=== PATIENT | female | born 1965 ===

== ENCOUNTER 2018-12-14 09:26 | Emergency (ER) | payer OTHER ==
[2018-12-14 09:32] VITALS: RESP 18
--- NOTE | 2018-12-14 11:14 | ED PDOC ---
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 denies: Chills, Nausea, Vomiting, Diarrhea, Loss Of Appetite Exacerbating Factors: None Alleviating Factors: None Last Bowel Movement: Today Additional Complaint(s): 52yo female c/o LUQ abd pain ongoing about 10 days but worsening over last 3-4 days. Denies N/V/D, change appetite, fever or urinary symptoms. Denies syncope or trauma. Notes a rib fracture on R side several years ago which is similar type of pain on other side. Past Medical History Reviewed: Historical Data, Nursing Documentation, Vital Signs Vital Signs: Last Vital Signs Temp 98.5 F 12/14/18 09:31 Pulse 68 12/14/18 09:31 Resp 18 12/14/18 09:31 BP 127/74 12/14/18 09:31 Pulse Ox 97 12/14/18 09:31 - Medical History PMH: Depression Denies: Chronic Kidney Disease - Surgical History Surgical History: - Family History Family History: States: Unknown Family Hx - Social History Current smoker - smoking cessation education provided: No - Home Medications Home Medications: Ambulatory Orders Medication Instructions Recorded RX: traMADol [Ultram] 50 mg PO TID PRN #12 tab 12/14/18 Ranitidine HCl [Zantac] 150 mg PO BID #20 tablet 12/14/18 - Allergies Allergies/Adverse Reactions: Allergies Allergy/AdvReac Type Severity Reaction Status Date / Time Penicillins Allergy Unknown NAUSEA Verified 12/14/18 13:03 Review of Systems ROS Statement: Except As Marked, All Systems Reviewed And Found Negative Constitutional: Negative for: Fever Cardiovascular: Negative for: Chest Pain Respiratory: Negative for: Shortness of Breath Gastrointestinal: Positive for: Abdominal Pain. Negative for: Nausea, Vomiting, Diarrhea Genitourinary Female: Negative for: Dysuria, Frequency Musculoskeletal: Positive for: Back Pain. Negative for: Neck Pain, Shoulder Pain Skin: Negative for: Rash, Lesions, Jaundice Neurological: Negative for: Weakness, Numbness Psych: Negative for: Anxiety Physical Exam - Reviewed Nursing Documentation Reviewed: Yes Vital Signs Reviewed: Yes - Physical Exam Appears: Positive for: Well, Non-toxic, No Acute Distress Head Exam: Positive for: ATRAUMATIC, NORMAL INSPECTION, NORMOCEPHALIC Skin: Positive for: Normal Color, Warm, DRY Eye Exam: Positive for: EOMI, Normal appearance, PERRL ENT: Positive for: Normal ENT Inspection Neck: Positive for: Normal, Painless ROM Cardiovascular/Chest: Positive for: Regular Rate, Rhythm Respiratory: Positive for: CNT, Normal Breath Sounds Gastrointestinal/Abdominal: Positive for: Soft, Tenderness (LUQ). Negative for: Guarding Back: Positive for: Normal Inspection Extremity: Positive for: Normal ROM Neurologic/Psych: Positive for: Alert, Oriented. Negative for: Motor/Sensory D eficits - Laboratory Results Result Diagrams: 12/14/18 12:00 12/14/18 12:00 - ECG O2 Sat by Pulse Oximetry: 97 Pulse Ox Interpretation: Normal Medical Decision Making Medical Decision Makin Abdomen/Pelvis FINDINGS: LOWER THORAX: Unremarkable. LIVER: 3.7 x 2.8 cm medial left hepatic lobe cyst. No gross lesion or ductal dilatation. GALLBLADDER AND BILE DUCTS: Unremarkable. PANCREAS: Unremarkable. No gross lesion or ductal dilatation. SPLEEN: Unremarkable. ADRENALS: Unremarkable. No mass. KIDNEYS AND URETERS: Unremarkable. Punctate nonobstructive left interpolar calculus. No hydronephrosis. No solid mass. VASCULATURE: Unremarkable. No aortic aneurysm. No aortic atherosclerotic calcification or mural plaque present. BOWEL: Unremarkable. No obstruction. No gross mural thickening. APPENDIX: Unremarkable. Normal appendix. PERITONEUM: Unremarkable. No free fluid. No free air. LYMPH NODES: Unremarkable. No enlarged lymph nodes. BLADDER: Unremarkable. REPRODUCTIVE: Unremarkable. BONES: No acute fracture. OTHER FINDINGS: None. IMPRESSION: Punctate nonobstructive left interpolar calculus. No obstructive uropathy or evidence of recently passed genitourinary calculus. 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 Disposition - Clinical Impression Clinical Impression: Abdominal pain - Patient ED Disposition Is Patient to be Admitted: No Counseled Patient/Family Regarding: Studies Performed, Diagnosis, Need For Followup - Disposition Referrals: [facility] [Outside] Disposition: Routine/Home Disposition Time: 12:15 Condition: STABLE Additional Instructions: Followup with clinic for further testing into precise cause of symptoms. Prescriptions: Ranitidine HCl [Zantac] 150 mg PO BID #20 tablet RX: traMADol [Ultram] 50 mg PO TID PRN #12 tab PRN Reason: Pain, Moderate (4-7) Instructions: Acute Abdomen (Belly Pain), Adult (DC) Forms: [employer] (Kyrgyz) Print Language: GIBRALTARIAN
[2018-12-14 12:50] LABS: SQUAMOUS EPITHIAL < 1 /hpf (0-5); URINE BILIRUBIN NEGATIVE (NEGATIVE); URINE CLARITY CLEAR (Clear); URINE COLOR YELLOW (YELLOW); URINE GLUCOSE (UA) NEG (NEGATIVE); URINE LEUKOCYTE ESTERASE NEG Leu/uL (Negative); URINE PROTEIN NEGATIVE (NEGATIVE); URINE UROBILINOGEN 0.2-1.0 mg/dL (0.2-1.0)
[2018-12-14 12:55] LABS: ALB/GLOB RATIO 1.2 (1.0-2.1); ALBUMIN 4.1 g/dL (3.5-5.0); ALT/SGPT 33 U/L (9-52); AST/SGOT 33 U/L (14-36); BASO % 0.6 % (0.0-2.0); BLOOD UREA NITROGEN 14 mg/dl (7-17); CALCIUM 9.1 mg/dL (8.4-10.2); EOS # 0.1 K/uL (0.0-0.7); EOS % 3.1 % (0.0-4.0); GFR NON-AFRICAN AMERICAN > 60; HEMOGLOBIN 12.7 g/dL (12.0-16.0); LIPASE 107 U/L (23-300); LYMPH # 1.1 K/uL (1.0-4.3); MEAN CELL VOLUME 89.2 fl (81.0-99.0); MEAN CORPUSCULAR HEMOGLOBIN 29.9 pg (27.0-31.0); MEAN CORPUSCULAR HGB CONC 33.5 g/dL (33.0-37.0); MEAN PLATELET VOLUME 8.4 fl (7.2-11.7); MONO # 0.3 K/uL (0.0-0.8); MONO % 7.2 % (0.0-10.0); NEUT # 2.9 K/uL (1.8-7.0); NEUT % 64.1 % (50.0-75.0); NRBC % 0.4 % (0.0-0.0); RBC 4.23 Mil/uL (3.80-5.20); RED CELL DISTRIBUTION WIDTH 13.2 % (11.5-14.5); WHITE BLOOD COUNT 4.5 K/uL (4.8-10.8)
--- NOTE | 2018-12-14 12:57 | CT ---
Date of service: 12/14/2018 PROCEDURE: CT Abdomen and Pelvis without intravenous contrast HISTORY: LUQ and L flank pain COMPARISON: None. TECHNIQUE: Contiguous images were obtained from the domes of the diaphragms to the upper thighs without the administration of intravenous contrast. Oral contrast was not administered. Radiation dose: Total exam DLP = 263.71 mGy-cm. This CT exam was performed using one or more of the following dose reduction techniques: Automated exposure control, adjustment of the mA and/or kV according to patient size, and/or use of iterative reconstruction technique. FINDINGS: LOWER THORAX: Unremarkable. LIVER: 3.7 x 2.8 cm medial left hepatic lobe cyst. No gross lesion or ductal dilatation. GALLBLADDER AND BILE DUCTS: Unremarkable. PANCREAS: Unremarkable. No gross lesion or ductal dilatation. SPLEEN: Unremarkable. ADRENALS: Unremarkable. No mass. KIDNEYS AND URETERS: Unremarkable. Punctate nonobstructive left interpolar calculus. No hydronephrosis. No solid mass. VASCULATURE: Unremarkable. No aortic aneurysm. No aortic atherosclerotic calcification or mural plaque present. BOWEL: Unremarkable. No obstruction. No gross mural thickening. APPENDIX: Unremarkable. Normal appendix. PERITONEUM: Unremarkable. No free fluid. No free air. LYMPH NODES: Unremarkable. No enlarged lymph nodes. BLADDER: Unremarkable. REPRODUCTIVE: Unremarkable. BONES: No acute fracture. OTHER FINDINGS: None. IMPRESSION: Punctate nonobstructive left interpolar calculus. No obstructive uropathy or evidence of recently passed genitourinary calculus.
[2018-12-14 13:01] LABS: URINE BLOOD TRACE (NEGATIVE)
[2018-12-14 15:57] VITALS: BP 102/56; PULSE 78; TEMP 98.4
--- NOTE | 2018-12-15 16:50 | CARD ---
APPROVED REPORT Date of service: 12/14/2018 EKG Measurement Heart [id number] <Conclusion> Sinus bradycardia Otherwise normal ECG
[2018-12-19 16:11] VITALS: O2SAT 97
== END 2018-12-14 15:58 | disposition home or self-care (01) ==
LOC: H.ER 09:26
DX: R10.9 Unspecified abdominal pain (principal); Z86.59 Personal history of other mental and behavioral disorders; Z88.0 Allergy status to penicillin
CPT/HCPCS: 74176; 80053; 81003; 81025; 83690; 84484; 85025; 93005; 96374; 99284; J1885

== ENCOUNTER 2019-01-08 18:50 | Emergency (ER) | payer OTHER ==
[2019-01-08 20:10] VITALS: BP 126/66; PULSE 59; RESP 16; TEMP 98.7; O2SAT 99
[2019-01-08] MEDS ORDERED: Sodium Chloride 0.9% 1,000 ML IV STA (21:09)
--- NOTE | 2019-01-08 21:12 | ED PDOC ---
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 Associated diarrhea (1-2x's daily). Pain worsened by food, has been taking Pepto bismol with little improvement. Patient also reports stools to be black. Denies fever, chest pain, shortness of breath, palpitations, urinary symptoms, recent travel, sick contacts. Past Medical History Reviewed: Historical Data, Nursing Documentation, Vital Signs Vital Signs: Last Vital Signs Temp 98.7 F 01/08/19 20:08 Pulse 59 L 01/08/19 20:08 Resp 16 01/08/19 20:08 BP 126/66 01/08/19 20:08 Pulse Ox 99 01/08/19 20:08 - Medical History PMH: Depression Denies: Chronic Kidney Disease - Surgical History Surgical History: Hernia Repair, - Family History Family History: States: Unknown Family Hx - Home Medications Home Medications: Ambulatory Orders Medication Instructions Recorded Ranitidine HCl [Zantac] 150 mg PO BID #20 tablet 12/14/18 traMADol [Ultram] 50 mg PO TID PRN #12 tab 12/14/18 Ciprofloxacin HCl [Cipro] 500 mg PO BID #19 tab 01/09/19 Dicyclomine [Bentyl] 20 mg PO TID PRN #21 tab 01/09/19 Famotidine [Pepcid] 20 mg PO BID #14 tab 01/09/19 metroNIDAZOLE [Flagyl] 500 mg PO TID #29 tab 01/09/19 - Allergies Allergies/Adverse Reactions: Allergies Allergy/AdvReac Type Severity Reaction Status Date / Time Penicillins Allergy Unknown NAUSEA Verified 01/08/19 20:08 Review of Systems ROS Statement: Except As Marked, All Systems Reviewed And Found Negative Gastrointestinal: Positive for: Abdominal Pain, Diarrhea Physical Exam - Reviewed Nursing Documentation Reviewed: Yes Vital Signs Reviewed: Yes - Physical Exam Appears: Positive for: Well, Non-toxic, No Acute Distress Head Exam: Positive for: ATRAUMATIC, NORMAL INSPECTION, NORMOCEPHALIC Skin: Positive for: Normal Color Eye Exam: Positive for: Normal appearance ENT: Positive for: Normal ENT Inspection Cardiovascular/Chest: Positive for: Regular Rate, Rhythm Respiratory: Positive for: Normal Breath Sounds Gastrointestinal/Abdominal: Positive for: Bowel Sounds, Soft, Tenderness (epigastric) Back: Positive for: Normal Inspection Extremity: Positive for: Normal ROM Neurologic/Psych: Positive for: Alert, Oriented (x3) - Laboratory Results Result Diagrams: 01/08/19 22:15 01/08/19 22:15 - ECG ECG: Positive for: Viewed By Me (reviewed by ED Attending) ECG Rhythm: Positive for: Sinus Bradycardia (59bpm) O2 Sat by Pulse Oximetry: 99 - Progress ED Course And Treament: -cbc -cmp -lipase -urinalysis -RUQ u/s -IV NS bolus -IV pepcid -PO bentyl EXAM: US Abdomen, Right Upper Quadrant. CLINICAL HISTORY: Ruq pain TECHNIQUE: Right upper quadrant sonography performed with image documentation. COMPARISON: None provided. FINDINGS: LIVER: 3.7 cm hepatic cyst. Within normal limits in size and echogenicity. No mass. GALLBLADDER: The gallbladder appears within normal limits. No gallbladder wall thickening or pericholecystic fluid. COMMON BILE DUCT: No dilation. 4 mm. PANCREAS: The distal pancreas is obscured by bowel gas. The visualized portion of the pancreas appears within normal limits. . RIGHT KIDNEY: Unremarkable. Normal renal contours. No renal mass or calculus. No hydronephrosis. IMPRESSION: 3.7 cm hepatic cyst. Unremarkable right upper quadrant ultrasound otherwise CT SCAN OF THE ABDOMEN AND PELVIS WITH CONTRAST. CLINICAL HISTORY: Abdominal pain. TECHNIQUE: Multiple axial and coronal CT images were obtained through the abdomen and pelvis after administration of intravenous and oral contrast material. COMPARISON: 12/14/2018. COMMENTS: Unchanged scattered simple hepatic cysts with the largest measuring 4.7 cm. Mild multifocal thickening of the sigmoid colon, not present on prior exam. The remaining liver is of uniform attenuation without mass or defect. There is no intra or extrahepatic biliary ductal dilatation. The spleen is normal. The gallbladder is within normal limits. The pancreas is of normal contour and attenuation characteristics. There is no evidence of adrenal mass. Both kidneys demonstrate prompt and equal nephrograms. The kidneys are normal in size, shape and configuration. There is no evidence of renal or ureteral mass. No renal or ureteral calculi are identified. There is no hydroureter or hydronephrosis. No evidence for appendicitis. No evidence for small or large bowel obstruction. There is no evidence of abdominal ascites or lymphadenopathy. There is no evidence of intrinsic or extrinsic bladder mass. There is no pelvic ascites or lymphadenopathy. Images of the lung bases show no evidence of pleural or parenchymal mass. There are no pleural effusions. The bony structures are free of lytic or blastic lesions. IMPRESSION: Uncomplicated sigmoid colitis, not present on prior exam Patient educated on findings, discharged with rx Cipro (dose given in ED), Flagyl (dose given in ED), bentyl, pepcid Advised follow up with PMD within 2-3 days Benedict diet Return precautions given Disposition - Clinical Impression Clinical Impression: Colitis, Abdominal pain - Patient ED Disposition Is Patient to be Admitted: No Counseled Patient/Family Regarding: Studies Performed, Diagnosis, Need For Followup, Rx Given - Disposition Referrals: [facility] [Outside] Disposition: Routine/Home Disposition Time: 03:02 Condition: IMPROVED Prescriptions: Ciprofloxacin HCl [Cipro] 500 mg PO BID #19 tab Dicyclomine [Bentyl] 20 mg PO TID PRN #21 tab PRN Reason: Pain, Mild (1-3) Famotidine [Pepcid] 20 mg PO BID #14 tab metroNIDAZOLE [Flagyl] 500 mg PO TID #29 tab Instructions: Colitis, Acute Abdomen (Belly Pain) Print Language: RUSSIAN
[2019-01-08 22:18] LABS: BASO % 0.4 % (0.0-2.0); EOS # 0.4 K/uL (0.0-0.7); EOS % 6.3 % (0.0-4.0); HEMOGLOBIN 11.3 g/dL (12.0-16.0); LYMPH # 1.4 K/uL (1.0-4.3); LYMPH % 24.4 % (20.0-40.0); MEAN CELL VOLUME 87.9 fl (81.0-99.0); MEAN CORPUSCULAR HGB CONC 34.1 g/dL (33.0-37.0); MEAN PLATELET VOLUME 8.1 fl (7.2-11.7); MONO # 0.3 K/uL (0.0-0.8); MONO % 6.1 % (0.0-10.0); NEUT # 3.6 K/uL (1.8-7.0); NEUT % 62.8 % (50.0-75.0); RBC 3.78 Mil/uL (3.80-5.20); RED CELL DISTRIBUTION WIDTH 13.4 % (11.5-14.5); WHITE BLOOD COUNT 5.7 K/uL (4.8-10.8)
[2019-01-08] MEDS ORDERED: Iohexol 240 (50 ml) PO ONE (22:32)
[2019-01-08 23:05] LABS: ALB/GLOB RATIO 1.3 (1.0-2.1); ALBUMIN 3.9 g/dL (3.5-5.0); ALT/SGPT 34 U/L (9-52); AST/SGOT 32 U/L (14-36); BLOOD UREA NITROGEN 10 mg/dl (7-17); CALCIUM 8.9 mg/dL (8.4-10.2); GFR NON-AFRICAN AMERICAN > 60; LIPASE 60 U/L (23-300)
[2019-01-08] MEDS ORDERED: Iohexol 240 (50 ml) ONE (23:22)
[2019-01-09 00:44] LABS: SQUAMOUS EPITHIAL < 1 /hpf (0-5); URINE BILIRUBIN NEGATIVE (NEGATIVE); URINE BLOOD MODERATE (NEGATIVE); URINE CLARITY SLIGHTY-CLOUDY (Clear); URINE COLOR YELLOW (YELLOW); URINE GLUCOSE (UA) NEG (NEGATIVE); URINE LEUKOCYTE ESTERASE NEG Leu/uL (Negative); URINE PROTEIN NEGATIVE (NEGATIVE); URINE UROBILINOGEN 0.2-1.0 mg/dL (0.2-1.0)
[2019-01-09] MEDS ORDERED: Iohexol 300 100 ML IJ ONE (01:37)
[2019-01-09] MEDS ORDERED: Potassium Chloride 20 mEq ER Tab PO ONE (03:01)
--- NOTE | 2019-01-09 10:17 | CARD ---
APPROVED REPORT Date of service: 01/08/2019 EKG Measurement Heart [id number] <Conclusion> Sinus bradycardia Otherwise normal ECG
--- NOTE | 2019-01-09 12:24 | US ---
Date of service: 01/08/2019 HISTORY: Abdominal pain COMPARISON: CT abdomen and pelvis performed earlier the same day TECHNIQUE: Grayscale imaging was performed. FINDINGS: LIVER: Measures 13.7 4.0 cm in length. Normal echogenicity of the liver parenchyma. There is a 2.8 x 2.5 x 3.7 cm simple cyst in the left hepatic lobe. No intrahepatic bile duct dilatation. GALLBLADDER: There are no gallstones, wall thickening or pericholecystic fluid. The sonographic Cline's sign is negative. COMMON BILE DUCT: Measures 4.0 mm. No stones. No dilatation. PANCREAS: Unremarkable as visualized. No mass. No ductal dilatation. RIGHT KIDNEY: Measures 10.6 cm in length. Normal echogenicity. No calculus, mass, or hydronephrosis. AORTA: No aneurysmal dilatation. IVC: Unremarkable. OTHER FINDINGS: None . IMPRESSION: No cholelithiasis or biliary dilatation. 3.7 cm simple cyst in the left hepatic lobe. A preliminary report was provided by [facility].
--- NOTE | 2019-01-09 12:31 | CT ---
Date of service: 01/09/2019 PROCEDURE: CT Abdomen and Pelvis with contrast HISTORY: abd pain, diarrhea COMPARISON: 12/14/2018 TECHNIQUE: Contrast dose: 80 mL Omnipaque 300 Radiation dose: Total exam DLP = 203.33 mGy-cm. This CT exam was performed using one or more of the following dose reduction techniques: Automated exposure control, adjustment of the mA and/or kV according to patient size, and/or use of iterative reconstruction technique. FINDINGS: LOWER THORAX: Unremarkable. LIVER: Normal size, contour and attenuation. Very mild periportal edema common nonspecific. Stable 3.9 cm low-density ovoid lesion in the left hepatic lobe, unchanged. Stable rounded 7 mm low-density lesion in the inferior right hepatic lobe. No new mass. GALLBLADDER AND BILE DUCTS: Unremarkable. PANCREAS: Unremarkable. No gross lesion or ductal dilatation. SPLEEN: Unremarkable. ADRENALS: Unremarkable. No mass. KIDNEYS AND URETERS: Unremarkable. No hydronephrosis. No solid mass. VASCULATURE: Unremarkable. No aortic aneurysm. Minimal atherosclerotic calcification of the abdominal aorta is noted. BOWEL: There is mild mural thickening of the sigmoid colon likely related to sigmoid diverticulosis and chronic muscularis hypertrophy. There is mild mural thickening of the superior rectum as well. Uncertain significance. Cannot rule out nonspecific focal colitis. Consider correlation with colonoscopy. This was not evident on prior CT examination and may be somewhat artifactual due to nondistention of the rectum. No bowel obstruction. No other abnormal bowel loops. APPENDIX: Normal appendix. PERITONEUM: Unremarkable. No free fluid. No free air. LYMPH NODES: Unremarkable. No enlarged lymph nodes. BLADDER: Unremarkable. REPRODUCTIVE: Uterus significant for hyperdense rounded mass, likely calcifying fibroid, 1.7 cm diameter. There is a subserosal exophytic posterior fundal fibroid, 1.4 cm diameter. BONES: No acute fracture. OTHER FINDINGS: None. IMPRESSION: Mild mural thickening of the sigmoid and rectum uncertain significance. Possible focal nonspecific colitis. Sigmoid mural thickening may also be related to chronic muscularis hypertrophy associated with diverticulosis. No other abnormal bowel loops. Mild nonspecific periportal edema. Additional minor findings as above. The preliminary findings for this examination were reported by [facility] at 2:22 a.m. on 01/09/2019. There is concurrence of this report with the preliminary findings.
== END 2019-01-09 03:15 | disposition home or self-care (01) ==
LOC: H.ER 18:50
DX: K52.9 Noninfective gastroenteritis and colitis, unspecified (principal); R10.13 Epigastric pain
CPT/HCPCS: 74177; 76705; 80053; 81003; 81025; 83690; 85025; 93005; 96361; 96374; 99283; G0328; J7030; Q9966; Q9967